=== PATIENT | male | born 1960 | race Caucasian/White ===

== ENCOUNTER 2017-04-18 12:33 | Emergency (ER) | payer OTHER ==
[2017-04-18 13:47] LABS: HEMOGLOBIN 14.2 gm/dl (14.0-17.5); RED BLOOD COUNT 5.13 M/UL (4.20-5.50)
[2017-04-18 14:01] LABS: BUN/CREATININE RATIO 14 (0-10)
== END 2017-04-18 19:00 | disposition home or self-care (01) ==
LOC: ER1 12:33
PROVIDERS: Emergency Medicine
DX: N39.0 Urinary tract infection, site not specified (principal); I10 Essential (primary) hypertension; E78.5 Hyperlipidemia, unspecified; E11.65 Type 2 diabetes mellitus with hyperglycemia; Z79.84 Long term (current) use of oral hypoglycemic drugs; Z79.4 Long term (current) use of insulin
CPT/HCPCS: 36415; 76870; 80053; 81001; 82009; 82962; 83690; 85025; 87086; 96372; 96374; 99284; J0696; J1815; J7030; J7050

== ENCOUNTER 2020-12-13 17:31 | Inpatient (IN) | payer OTHER ==
[~2020-12-13] VITALS: Ht 185.4 cm; Wt 154.2 kg
[~2020-12-13 17:31] MED LIST: PERCOCET 5/325 T1 EA PO
[2020-12-13 18:34] LABS: HEMOGLOBIN 15.9 gm/dl (14.0-17.5); RED BLOOD COUNT 5.4 M/UL (4.20-5.50); WHITE BLOOD COUNT 12.6 K/UL (4.5-11.0)
[2020-12-13 19:13] LABS: BUN/CREATININE RATIO 17 (0-10)
[2020-12-13] MEDS ORDERED: VENTOLIN HFA 66.7 GM INH (23:42)
[2020-12-13] MEDS ORDERED: CEFDINIR300 MG PO (23:43)
[2020-12-13] MEDS ORDERED: DOXYCYCLINE HY100 MG PO (23:44)
[2020-12-13] MEDS ORDERED: FLONASE 0.05% N16 GM (23:45)
[2020-12-13] MEDS ORDERED: HYDROCODON-ACE1 EAC2 PO (23:45)
[2020-12-13] MEDS ORDERED: LIPITOR40 MG PO (23:45)
[2020-12-13] MEDS ORDERED: GLUCOTROL5 MG PO (23:46)
[2020-12-13] MEDS ORDERED: GLUCOPHAGE1000 MG PO (23:47)
[2020-12-13] MEDS ORDERED: PRINIVIL20 MG PO (23:47)
[2020-12-13] MEDS ORDERED: VICTOZA 1818 MG/3 ML SQ (23:47)
[2020-12-13] MEDS ORDERED: OMEPRAZOLE40 MG PO (23:48)
[2020-12-13] MEDS ORDERED: BASAGLAR K100 UNIT/1 SQ (23:48)
[2020-12-13] MEDS ORDERED: DITROPAN XL10 MG PO (23:49)
[2020-12-14 05:01] LABS: HEMOGLOBIN 14.2 gm/dl (14.0-17.5); RED BLOOD COUNT 4.9 M/UL (4.20-5.50); WHITE BLOOD COUNT 11.6 K/UL (4.5-11.0)
[2020-12-14 05:44] LABS: BUN/CREATININE RATIO 22 (0-10)
[2020-12-15 03:12] LABS: HEMOGLOBIN 14.7 gm/dl (14.0-17.5); RED BLOOD COUNT 5.01 M/UL (4.20-5.50)
[2020-12-15 03:26] LABS: BUN/CREATININE RATIO 28 (0-10)
[2020-12-15 03:45] LABS: WHITE BLOOD COUNT 14.6 K/UL (4.5-11.0)
[2020-12-16 04:13] LABS: HEMOGLOBIN 14.5 gm/dl (14.0-17.5); RED BLOOD COUNT 4.96 M/UL (4.20-5.50); WHITE BLOOD COUNT 14.6 K/UL (4.5-11.0)
[2020-12-16 04:40] LABS: BUN/CREATININE RATIO 36 (0-10)
[2020-12-17 02:38] LABS: HEMOGLOBIN 13.8 gm/dl (14.0-17.5); RED BLOOD COUNT 4.95 M/UL (4.20-5.50); WHITE BLOOD COUNT 13.7 K/UL (4.5-11.0)
[2020-12-17 03:45] LABS: BUN/CREATININE RATIO 33 (0-10)
[2020-12-18 02:28] LABS: HEMOGLOBIN 14.4 gm/dl (14.0-17.5); RED BLOOD COUNT 4.93 M/UL (4.20-5.50); WHITE BLOOD COUNT 15.1 K/UL (4.5-11.0)
[2020-12-18 02:49] LABS: BUN/CREATININE RATIO 35 (0-10)
[2020-12-19 12:39] LABS: BUN/CREATININE RATIO 41 (0-10)
[2020-12-22] MEDS ORDERED: AMLODIPINE BESYL5 MG PO (09:05)
== END 2020-12-22 14:00 | disposition home or self-care (01) | DRG 199 ==
LOC: ER1 17:31 → MED SURG 4 21:29 → CDU 21:29 → PROG CARE 21:29 → MED SURG 4 12-18 13:46
PROVIDERS: Emergency Medicine; Family Medicine; Internal Medicine; ADMIT Surgery
PROC: 0W9B30Z Drainage of Left Pleural Cavity with Drainage Device, Percutaneous Approach (ICD-10-PCS; principal; 2020-12-13)
PROC: 8E0ZXY6 Isolation (ICD-10-PCS; 2020-12-13)
PROC: XW033E5 Introduction of Remdesivir Anti-infective into Peripheral Vein, Percutaneous Approach, New Technology Group 5 (ICD-10-PCS; 2020-12-14)
DX: S27.0XXA Traumatic pneumothorax, initial encounter (principal); J96.01 Acute respiratory failure with hypoxia; U07.1 COVID-19; J12.82 Pneumonia due to coronavirus disease 2019; S22.42XA Multiple fractures of ribs, left side, initial encounter for closed fracture; J98.11 Atelectasis; V43.53XA Car driver injured in collision with pick-up truck in traffic accident, initial encounter; Y92.410 Unspecified street and highway as the place of occurrence of the external cause; S60.212A Contusion of left wrist, initial encounter; I10 Essential (primary) hypertension; E78.00 Pure hypercholesterolemia, unspecified; J44.9 Chronic obstructive pulmonary disease, unspecified; Z59.0 Homelessness; E66.01 Morbid (severe) obesity due to excess calories; E11.65 Type 2 diabetes mellitus with hyperglycemia; I95.9 Hypotension, unspecified
CPT/HCPCS: 32551; 36415; 36600; 70450; 71045; 71260; 72125; 72128; 72131; 73030; 73110; 80048; 80053; 81001; 82550; 82553; 82728; 82803; 82962; 83036; 83605; 83615; 83874; 84484; 85025; 85610; 86140; 87040; 87081; 93005; 94640; 94760; 96365; 96366; 96368; 96372; 96375; 96376; 97110-GP-CQ; 97116-GP-CQ; 97161; 99285; A6212; J0360; J1100; J1650; J1885; J1956; J2270; J2405; J7030; Q9967; U0002

== ENCOUNTER 2020-12-26 11:39 | Emergency (ER) | payer OTHER ==
[~2020-12-26 11:39] MED LIST changes: +AMLODIPINE BESYL5 MG PO; +BASAGLAR K100 UNIT/1 SQ; +CEFDINIR300 MG PO; +DITROPAN XL10 MG PO; +DOXYCYCLINE HY100 MG PO; +FLONASE 0.05% N16 GM; +GLUCOPHAGE1000 MG PO; +GLUCOTROL5 MG PO; +HYDROCODON-ACE1 EAC2 PO; +LIPITOR40 MG PO; +OMEPRAZOLE40 MG PO; +PRINIVIL20 MG PO; +VENTOLIN HFA 66.7 GM INH; +VICTOZA 1818 MG/3 ML SQ
[2020-12-26 14:12] LABS: HEMOGLOBIN 14.8 gm/dl (14.0-17.5); RED BLOOD COUNT 5.1 M/UL (4.20-5.50); WHITE BLOOD COUNT 15.9 K/UL (4.5-11.0)
[2020-12-26 14:31] LABS: BUN/CREATININE RATIO 18 (0-10)
[2020-12-26] MEDS ORDERED: BACTRIM DS TAB1 EACH PO (16:26)
[2020-12-26] MEDS ORDERED: OMNICEF 300 MG300 MG PO (16:26)
[2020-12-26] MEDS ORDERED: LOTRIMIN CREAM45 GM TOP (16:26)
== END 2020-12-26 17:21 | disposition home or self-care (01) ==
LOC: ER1 11:39
PROVIDERS: Physician Assistant
DX: G89.18 Other acute postprocedural pain (principal); R07.81 Pleurodynia; N39.0 Urinary tract infection, site not specified; B35.6 Tinea cruris; L03.317 Cellulitis of buttock; E11.9 Type 2 diabetes mellitus without complications; J44.9 Chronic obstructive pulmonary disease, unspecified; Z79.4 Long term (current) use of insulin; Z79.899 Other long term (current) drug therapy; Z87.891 Personal history of nicotine dependence
CPT/HCPCS: 71046; 80053; 81001; 82550; 82553; 83874; 84484; 85025; 93005; 99284